=== PATIENT | female | born 1995 | race Two or more races ===

== ENCOUNTER 2025-07-13 16:51 | Emergency (ER) | payer BC ==
[~2025-07-13] VITALS: Ht 157.5 cm; Wt 54.4 kg
[2025-07-13] MEDS ORDERED: LIDOCAINE 1% INJ 50 ML MDV IJ ONE (17:27)
[2025-07-13] MEDS ORDERED: SULF1TAB48 PO (17:54)
[2025-07-13 18:15] VITALS: BP 117/72; TEMP 98.5; O2SAT 100
== END 2025-07-13 18:16 | disposition home or self-care (01) ==
LOC: ER 16:55
DX: N75.0 Cyst of Bartholin's gland (principal); Z60.2 Problems related to living alone
CPT/HCPCS: 56420; 99284; J3490